=== PATIENT | female | born 1960 | race Caucasian/White ===

== ENCOUNTER 2021-01-26 06:15 | Day surgery (SDC) | payer OTHER ==
[~2021-01-26] VITALS: Ht 149.9 cm; Wt 92.5 kg
[2021-01-26] MEDS ORDERED: fentaNYL citrate 0.05 MG/ML VIAL ONE (07:57)
[2021-01-26] MEDS ORDERED: MIDAZOLAM 5 MG/5 ML VIAL ONE (07:58)
[2021-01-26] MEDS ORDERED: MIDAZOLAM 2 MG/2 ML VIAL IVP ONE (08:40)
== END 2021-01-26 09:50 | disposition home or self-care (01) ==
LOC: MDS 06:15 → MMU 06:20 → MDS 09:50
PROVIDERS: ATTEND Internal Medicine Gastroenterology
DX: R13.10 Dysphagia, unspecified (principal); I10 Essential (primary) hypertension; E78.5 Hyperlipidemia, unspecified; E11.9 Type 2 diabetes mellitus without complications; K21.9 Gastro-esophageal reflux disease without esophagitis; K31.89 Other diseases of stomach and duodenum; Z79.899 Other long term (current) drug therapy
CPT/HCPCS: 36415; 43239; 86677; 87426; J2250; J3010

== ENCOUNTER 2024-01-23 06:24 | Day surgery (SDC) | payer OTHER ==
[~2024-01-23] VITALS: Ht 152.4 cm; Wt 86.2 kg
[2024-01-23] MEDS ORDERED: BUPIVACAINE-MPF 0.25% 30 ML VIAL INJ ONE (07:11)
[2024-01-23] MEDS ORDERED: HYDROmorphone PFS 2 MG/ML SYR ONE ×2 (07:29→10:08)
[2024-01-23] MEDS ORDERED: SUCCINYLCHOLINE CHLORIDE 200 MG/10 ML VIAL IVP ONE (07:30)
[2024-01-23] MEDS ORDERED: PROPOFOL 200 MG/20 ML VIAL IV ONE (07:31)
[2024-01-23] MEDS ORDERED: LIDOCAINE 2% 100 MG/5 ML SYR IVP ONE (07:38)
[2024-01-23] MEDS ORDERED: ePHEDrine 50 MG/ML VIAL ONE (07:55)
[2024-01-23] MEDS: ceFAZolin 2,000 MG VIAL ONE (08:16)
[2024-01-23] MEDS: LIDOCAINE/EPI 1% 1:100000 20 ML VIAL INJ ONE (08:16)
[2024-01-23] MEDS ORDERED: KETOROLAC 30 MG/ML VIAL ONE (09:23)
[2024-01-23] MEDS ORDERED: ONDANSETRON 4 MG/2 ML VIAL IVP PRN (09:45)
[2024-01-23] MEDS: HYDROmorphone 1 MG/ML AMP IVP PRN (10:00)
[2024-01-23] MEDS ORDERED: IBUP-2213 PO ×3 (10:37→13:51)
[2024-01-23] MEDS ORDERED: SIME80TA41 PO (10:37)
[2024-01-23] MEDS ORDERED: oxyCODONE/APAP 5/325 MG 1 TAB TAB PO PRN ×2 (11:20)
[2024-01-23] MEDS ORDERED: oxyCODONE/APAP 5/325 MG 1 TAB TAB ONE (11:37)
[2024-01-23] MEDS ORDERED: KETOROLAC 30 MG/ML VIAL IM SCH (12:00)
[2024-01-23] MEDS ORDERED: SIMETHICONE 40 MG/0.6 ML ONE (17:12)
== END 2024-01-23 15:12 | disposition home or self-care (01) ==
LOC: MDS 06:24 → MMU 06:25 → MDS 15:12
PROVIDERS: ATTEND Obstetrics & Gynecology
DX: N93.9 Abnormal uterine and vaginal bleeding, unspecified (principal); I10 Essential (primary) hypertension; K21.9 Gastro-esophageal reflux disease without esophagitis; E78.5 Hyperlipidemia, unspecified; E11.9 Type 2 diabetes mellitus without complications; M19.90 Unspecified osteoarthritis, unspecified site; F41.9 Anxiety disorder, unspecified; G43.909 Migraine, unspecified, not intractable, without status migrainosus; Z91.040 Latex allergy status; Z79.899 Other long term (current) drug therapy; Z98.890 Other specified postprocedural states
CPT/HCPCS: 36415; 58571; 71045; 82948; 86886; 86900; 86901; 88307; 93005; J0330; J1170; J1885; J2001; J2704; J7030; J7120; J3490